=== PATIENT | female | born 1970 | race Caucasian/White ===

== ENCOUNTER → 2016-12-20 | Outpatient (CLI) | payer BC | END | disposition home or self-care (01) | DX: Z12.31 Encounter for screening mammogram for malignant neoplasm of breast (principal); R07.0 Pain in throat ==

== ENCOUNTER → 2016-12-27 | Outpatient (CLI) | payer BC | END | disposition home or self-care (01) | LOC: RAD.S 12-21 07:52 | DX: N63 Unspecified lump in breast (principal); R92.2 Inconclusive mammogram; N60.01 Solitary cyst of right breast ==